=== PATIENT | female | born 2000 | race Two or more races ===

== ENCOUNTER 2024-11-14 11:26 | Observation (INO) | payer MEDICAID ==
[~2024-11-14] VITALS: Ht 157.5 cm; Wt 68.0 kg
--- NOTE | 2024-11-14 12:44 | DVH ---
BIOPHYSICAL PROFILE HISTORY: Decreased movement TECHNIQUE: Multiple transabdominal real-time grayscale sonographic images through the gravid uterus of the fetus with duplex Doppler color flow and M-mode spectral analysis FINDINGS: BIOPHYSICAL PROFILE: breathing score: 0 movement score: 2 tone score: 0 Quantitative BASHIR score: 2 (BASHIR: 7.0 Cm.) Total score: 4/8 Single live fetus in cephalic presentation. heart rate 132 beats per minute. Anterior placenta without previa or abruption IMPRESSION: 1. Biophysical profile score: 4/8. No episodes of breathing of at least 30 seconds duration wer e appreciated during the 30 minute exam. No episodes of extremity extension with return to flex ion, or opening and closing of the hand were appreciated during the 30 minute exam. HS:Y
[2024-11-14] MEDS: ceFAZolin 2 GM/D5W50ml 50 ML IV ONE (13:45)
[2024-11-14] MEDS: LACTATED RINGER'S 1,000 ML IV ONE (13:45)
--- NOTE | 2024-11-14 13:56 | DVH ---
LIMITED OB ULTRASOUND > 14 WKS: HISTORY: Failed BPP dECRESED MOVEMENT TECHNIQUE: Multiple real-time grayscale images of the gravid uterus with duplex Doppler color flow an d M-mode spectral analysis. TRANSDUCER: Transabdominal FINDINGS: IUP single live fetus at 35 weeks 3 days based on composite averages of the BPD, head circumference, abdominal circumference and femur length Estimated weight 2553 grams heart rate 141 beats per minute BASHIR 7.0 cm Cervix not well-visualized Cephalic Presentation Anterior placenta without previa or abruption. IMPRESSION: 1. IUP single live fetus at 35 weeks 3 days AUA corresponding to an CHUCKY of 12/16/2024. HS:Y
--- NOTE | 2024-11-14 14:10 | DVHDS2 ---
Physician Discharge Progress N Final Diagnosis: iugr Operations or Procedures: Operations or Procedures maximo dejesus Consultations: Consultations bpp is 6/10 ,pt needs to go to her ob now up[on dc .this was communictaed to the pt and she understands and agrees .possib of iufd d/w pt therefore pt is to go there now to be inducedshe agreed Condition on Discharge: Good Disposition: Home Discharge Instructions: Diet: Regular Activity: strictlyselfquarantine&[id number] Medications: na Follow Up Care: Specialist: to her ob now Discharge Statement: "Patient was advised to return to the ER or call 911 if any headaches, dizziness, shortness of breath, chest pain, abdominal pain, bleeding, fevers, or worsening of medical condition. Patient was counseled about treatment plan, medications, possible side effects, patientverbalized understanding. All questions were answered to the best of my ability. This discharge took greater then 30 minutes in planning, reviewing documentatio n, counseling the patient, and discussing with other team members." IVETT BOTELLO DO Nov 14, 2024 14:10
== END 2024-11-14 15:36 | disposition home or self-care (01) ==
LOC: UNDOADMOB 11:26 → LDRP 11:26 → UNDODISOB 15:36
PROVIDERS: ADMIT Obstetrics & Gynecology; ATTEND Obstetrics & Gynecology
DX: O36.5930 Maternal care for other known or suspected poor fetal growth, third trimester, not applicable or unspecified (principal); Z3A.38 38 weeks gestation of pregnancy; Z79.899 Other long term (current) drug therapy
CPT/HCPCS: 59025; 76805; 76818; 81002; 94760; 96365; G0378; J0690; 96360